=== PATIENT | male | born 1980 | race Caucasian/White ===

== ENCOUNTER 2019-06-13 17:11 | Emergency (ER) | payer OTHER ==
[~2019-06-13] VITALS: Ht 190.5 cm; Wt 136.1 kg
[~2019-06-13 17:11] MED LIST: OSTEOBIFLEX; RELACORE; [UNRECOGNIZED DRUG - OTHER]
== END 2019-06-13 19:45 | disposition home or self-care (01) ==
LOC: ER 17:11
DX: R60.0 Localized edema (principal); Z88.7 Allergy status to serum and vaccine; Z79.899 Other long term (current) drug therapy
CPT/HCPCS: 73630; 93971; 99284-25

== ENCOUNTER 2021-07-25 11:02 | Emergency (ER) | payer OTHER ==
[~2021-07-25] VITALS: Ht 190.5 cm; Wt 142.9 kg
[2021-07-25 12:03] LABS: BASOPHILS ABSOLUTE AUTO 0.06 K/mm3 (0.00-0.23); BASOPHILS PERCENT AUTO 1 % (0-2); EOSINOPHILS ABSOLUTE AUTO 0.14 K/mm3 (0.00-0.68); EOSINOPHILS PERCENT AUTO 2 % (0-6); Hematocrit 46.5 % (37.0-53.0); Hemoglobin 15.9 g/dL (13.5-17.5); IMMATURE GRAN ABSOLUTE AUTO 0.03 K/mm3 (0.00-0.10); IMMATURE GRAN PERCENT AUTO 0 % (0-1); LYMPHOCYTES ABSOLUTE AUTO 2.11 K/mm3 (0.84-5.20); LYMPHOCYTES PERCENT AUTO 27 % (21-46); MONOCYTES ABSOLUTE AUTO 0.71 K/mm3 (0.16-1.47); MONOCYTES PERCENT AUTO 9 % (4-13); Mean Corpuscular HGB 31.5 pg (26.0-34.0); Mean Corpuscular HGB Conc 34.2 g/dL (31.5-36.5); Mean Corpuscular Volume 92 fL (80-100); Mean Platelet Volume 10.2 fL (9.1-12.4); NEUTROPHILS ABSOLUTE AUTO 4.75 K/mm3 (1.96-9.15); NEUTROPHILS PERCENT AUTO 61 % (41-73); Platelet Count 279 K/mm3 (150-400); RDW Coefficient Variation 12.4 % (11.7-14.2); RDW Standard Deviation 41.9 fL (35.1-46.3); Red Blood Cell Count 5.05 M/mm3 (4.30-5.90)
[2021-07-25 12:22] LABS: Alanine Aminotransfer (ALT/SGP 92 U/L (12-78); Albumin, Blood 3.8 g/dL (3.4-5.0); Albumin/Globulin Ratio 0.9 (0.8-1.8); Alk Phos 109 U/L (50-136); Anion Gap 2 mmol/L (6-16); Aspartate Aminotrans (AST/SGOT 47 U/L (12-37); Bilirubin, Total 0.9 mg/dL (0.1-1.0); Blood Urea Nitrogen 11 mg/dL (8-24); Bun/Creatinine Ratio 10.6 (12.0-20.0); CO2, Blood 30 mmol/L (21-32); Calcium, Blood 9.4 mg/dL (8.5-10.1); Chloride, Blood 106 mmol/L (98-108); Creatinine, Blood 1.04 mg/dL (0.60-1.20); Globulin, Blood 4.4 g/dL (2.2-4.0); Glomerular Filtration Rate >60 (60-); Glucose, Blood 111 mg/dL (70-99); Potassium, Blood 4.3 mmol/L (3.5-5.5); Sodium, Blood 138 mmol/L (136-145); Total Protein, Blood 8.2 g/dL (6.4-8.2)
== END 2021-07-25 17:26 | disposition home or self-care (01) ==
LOC: ER 11:02
PROVIDERS: Student in an Organized Health Care Education/Training Program
DX: H53.8 Other visual disturbances (principal)
CPT/HCPCS: 36415; 70450; 80053; 85025; 93005; 93010; 99284-25

== ENCOUNTER 2024-03-19 00:50 | Observation (INO) | payer OTHER ==
[~2024-03-19] VITALS: Ht 188 cm; Wt 129.3 kg
[2024-03-19] MEDS ORDERED: NS 1,000 ML IV SCH ×3 (01:00→02:55)
[2024-03-19 01:06] LABS: BASOPHILS ABSOLUTE AUTO 0.05 K/mm3 (0.00-0.23); BASOPHILS PERCENT AUTO 1 % (0-2); EOSINOPHILS ABSOLUTE AUTO 0.07 K/mm3 (0.00-0.68); EOSINOPHILS PERCENT AUTO 1 % (0-6); Hematocrit 43.7 % (37.0-53.0); Hemoglobin 15.4 g/dL (13.5-17.5); IMMATURE GRAN ABSOLUTE AUTO 0.06 K/mm3 (0.00-0.10); IMMATURE GRAN PERCENT AUTO 1 % (0-1); LYMPHOCYTES ABSOLUTE AUTO 1.56 K/mm3 (0.84-5.20); LYMPHOCYTES PERCENT AUTO 17 % (21-46); MONOCYTES ABSOLUTE AUTO 0.56 K/mm3 (0.16-1.47); MONOCYTES PERCENT AUTO 6 % (4-13); Mean Corpuscular HGB 30.7 pg (26.0-34.0); Mean Corpuscular HGB Conc 35.2 g/dL (31.5-36.5); Mean Corpuscular Volume 87 fL (80-100); NEUTROPHILS ABSOLUTE AUTO 6.74 K/mm3 (1.96-9.15); NEUTROPHILS PERCENT AUTO 74 % (41-73); Platelet Count 239 K/mm3 (150-400); RDW Coefficient Variation 12.5 % (11.7-14.2); Red Blood Cell Count 5.01 M/mm3 (4.30-5.90); White Blood Cell Count 9.04 K/mm3 (4.00-11.30)
[2024-03-19 01:28] LABS: Albumin, Blood 3.5 g/dL (3.4-5.0); Albumin/Globulin Ratio 0.9 (0.8-1.8); Bilirubin, Total 0.7 mg/dL (0.1-1.0); Bun/Creatinine Ratio 18.1 (12.0-20.0); Calcium, Blood 9.2 mg/dL (8.5-10.1); Creatinine, Blood 0.89 mg/dL (0.60-1.20); Globulin, Blood 4.1 g/dL (2.2-4.0); Potassium, Blood 4.2 mmol/L (3.5-5.5); Total Protein, Blood 7.6 g/dL (6.4-8.2)
[2024-03-19 01:46] LABS: Source, Urine Voided
[2024-03-19 01:54] LABS: Bilirubin, Urine Neg (Neg); Blood, Urine 1+ (Neg); Glucose Qualitative, Urine 4+ (Neg); Ketones, Urine Neg (Neg); Leukocyte Esterase, Urine Neg (Neg); Nitrite, Urine Neg (Neg); Protein, Urine 3+ (Neg); Urobilinogen, Urine NORM (Normal)
[2024-03-19 02:10] LABS: Bicarbonate Venous 21.5 mmol/L (24.0-30.0); PCO2 Venous 42.1 mmHg (38-42); pH Blood Venous 7.33 (7.34-7.37)
[2024-03-19 02:11] LABS: Base Excess Venous -3.6 mmol/L
[2024-03-19 02:19] LABS: U Amphetamine Screen Not Detected; U Barbituate Screen Not Detected; U Benzodiazapine Screen Not Detected; U Buprenorphine Screen Not Detected; U Cannabinoids Screen Not Detected; U Cocaine Screen Not Detected; U Methadone Screen Not Detected; U Methamphetamine Screen Not Detected; U Opiates Screen Not Detected; U Oxycodone Screen Not Detected; U Phencyclidine Screen Not Detected
[2024-03-19 02:22] LABS: Beta-hydroxybutyrate 1.9 mg/dL (0.2-2.8)
[2024-03-19 02:26] LABS: Appearance, Urine Clear (Clear); Color, Urine Pale Yellow (P-Yellow)
[2024-03-19 02:27] LABS: Bacteria Few /hpf; Red Blood Cells, Urine 0-2 /hpf (0-2); Squamous Epithelial Cells Few /hpf (Few); White Blood Cells, Urine 0-2 /hpf (0-5)
[2024-03-19] MEDS ORDERED: Insulin Regular 100 Unit/ML 1ML Dose SC ONE (02:30)
[2024-03-19] MEDS ORDERED: Insulin Glargine-Yfgn 100 Unit/mL 3 ML SYR SC SCH (03:00)
[2024-03-19] MEDS ORDERED: Ondansetron HCl 2 MG / ML 2ML Vial IV PRN (03:00)
[2024-03-19 04:23] VITALS: BP 159/99
[2024-03-19 05:09] LABS: BASOPHILS ABSOLUTE AUTO 0.07 K/mm3 (0.00-0.23); BASOPHILS PERCENT AUTO 1 % (0-2); EOSINOPHILS ABSOLUTE AUTO 0.03 K/mm3 (0.00-0.68); EOSINOPHILS PERCENT AUTO 0 % (0-6); Hematocrit 42.3 % (37.0-53.0); Hemoglobin 14.8 g/dL (13.5-17.5); IMMATURE GRAN ABSOLUTE AUTO 0.08 K/mm3 (0.00-0.10); IMMATURE GRAN PERCENT AUTO 1 % (0-1); LYMPHOCYTES ABSOLUTE AUTO 1.75 K/mm3 (0.84-5.20); LYMPHOCYTES PERCENT AUTO 13 % (21-46); MONOCYTES ABSOLUTE AUTO 0.79 K/mm3 (0.16-1.47); MONOCYTES PERCENT AUTO 6 % (4-13); Mean Corpuscular HGB 31.1 pg (26.0-34.0); Mean Corpuscular Volume 89 fL (80-100); Mean Platelet Volume 10.4 fL (9.1-12.4); NEUTROPHILS ABSOLUTE AUTO 10.32 K/mm3 (1.96-9.15); NEUTROPHILS PERCENT AUTO 79 % (41-73); Platelet Count 253 K/mm3 (150-400); RDW Coefficient Variation 12.5 % (11.7-14.2); Red Blood Cell Count 4.76 M/mm3 (4.30-5.90); White Blood Cell Count 13.04 K/mm3 (4.00-11.30)
[2024-03-19 05:36] LABS: Alanine Aminotransfer (ALT/SGP 97 U/L (12-78); Albumin, Blood 3.3 g/dL (3.4-5.0); Albumin/Globulin Ratio 0.9 (0.8-1.8); Alk Phos 185 U/L (50-136); Anion Gap 12 mmol/L (3-11); Aspartate Aminotrans (AST/SGOT 43 U/L (12-37); Bilirubin, Total 0.6 mg/dL (0.1-1.0); Blood Urea Nitrogen 11 mg/dL (8-24); Bun/Creatinine Ratio 13.7 (12.0-20.0); CHOL/HDL RATIO 5.2; CO2, Blood 24 mmol/L (21-32); Calcium, Blood 8.3 mg/dL (8.5-10.1); Chloride, Blood 103 mmol/L (98-108); Cholesterol 217 mg/dL (50-200); Creatinine, Blood 0.81 mg/dL (0.60-1.20); Globulin, Blood 3.7 g/dL (2.2-4.0); Glomerular Filtration Rate 112 (60-); Glucose, Blood 434 mg/dL (70-99); HDL Cholesterol 42 mg/dL (>39); LDL/HDL RATIO Unable to Calculate; Low Density Lipoprotein Chol Unable to Calculate mg/dL (0-110); Potassium, Blood 3.3 mmol/L (3.5-5.5); Sodium, Blood 136 mmol/L (136-145); Triglycerides 546 mg/dL (30-160); Very Low Density Lipoprot Chol Unable to Calculate mg/dL (6-32)
[2024-03-19] MEDS ORDERED: Potassium Chloride 20 MEQ TabCR PO ONE ×2 (06:30→07:45)
--- NOTE | 2024-03-19 06:31 | NUR ---
SHIFT SUMMARY: Pt is admitted for nonketotic hyperglycinemia and is a full code. Is alert and able to make needs known arrived to the floor about 0400 from the ED. ADLs have been SBA. states that he has some low level pain in his neck. Current running NS at 100 x1 bag to the right AC. pankaj reports sinus in the 90s.
[2024-03-19 07:06] VITALS: BP 128/94
[2024-03-19] MEDS ORDERED: Insulin Human Lispro 100 Units/ML 3ML Syringe SC SCH (07:30)
[2024-03-19] MEDS ORDERED: Polyethylene Glycol 3350 17 gm PO PRN (07:45)
[2024-03-19] MEDS ORDERED: Acetaminophen 500 MG Tab PO PRN (07:45)
[2024-03-19] MEDS ORDERED: Enoxaparin 40 MG/0.4 ML SYR SC SCH (09:00)
--- NOTE | 2024-03-19 09:00 | NUR ---
pt laying in bed with eyes closed, wakes easily, a/ox4, a bit slow to process, very cooperative with care, follows commands well, denies pain, lungs are clear t/o, resp even and unlabored, no cough noted, hrr, no edema noted, piv to lfa site is clear and patent, infusing ns as ordered, btx4, abd flat soft nontender, voids without diff, skin c/w/d, with some abrasions secondary to fall at home, call light in reach.
[2024-03-19] MEDS ORDERED: Empagliflozin 10 MG TAB PO ONE (13:00)
[2024-03-19 16:03] VITALS: BP 142/102
[2024-03-19] MEDS ORDERED: MetFORMIN HCl 500 mg PO SCH (17:00)
--- NOTE | 2024-03-19 18:22 | NUR ---
working on teaching pt how to check blood sugar and give insulin injections. did ok, eager to learn, he has had no acute changes this shift.
[2024-03-19 20:22] VITALS: BP 123/91
[2024-03-20 02:59] VITALS: BP 135/92
[2024-03-20 05:34] LABS: Albumin, Blood 3.2 g/dL (3.4-5.0); Anion Gap 13 mmol/L (3-11); Blood Urea Nitrogen 9 mg/dL (8-24); Bun/Creatinine Ratio 11.2 (12.0-20.0); CO2, Blood 27 mmol/L (21-32); Calcium, Blood 8.8 mg/dL (8.5-10.1); Chloride, Blood 105 mmol/L (98-108); Glomerular Filtration Rate 113 (60-); Glucose, Blood 169 mg/dL (70-99); Phosphorus, Blood 3.6 mg/dL (2.5-4.9); Potassium, Blood 3.5 mmol/L (3.5-5.5); Sodium, Blood 141 mmol/L (136-145)
--- NOTE | 2024-03-20 06:02 | NUR ---
SHIFT SUMMARY: Pt is admitted for nonketotic hyperglycinemia and is a full code. Is alert and able to make needs known. ADLs have been SBA. states his pain is better than it was last night and declines anything for pain management. pankaj reports sinus in the 90s
[2024-03-20 07:52] VITALS: BP 137/95
--- NOTE | 2024-03-20 08:59 | NUR ---
pt laying in bed eating breakfast, a/ox4, a bit slow to respond, pleasant and cooperative with care, follows commands well, denies pain, reports a good night, lungs are clear t/o, resp even and unlabored, no cough noted, hrr, no edema noted, ppp+2, cap refill <3 sec, vs stable, afebrile, piv to lfa site is clear and patent, btx4, abd flat soft nontender, voids without diff, skin c/w/d, maew, micki, call light in reach.
--- NOTE | 2024-03-20 12:23 | NUR ---
pt has been giving himself the insulin and did his own finger stick to check glucose, doing well. synthetic cloth binding cutter in to do dietary education. will be discharged this afternoon. call light in reach.
[2024-03-20] MEDS ORDERED: BASAGLAR K100 UNIT/1 SC (12:53)
[2024-03-20] MEDS ORDERED: METF500 PO (12:53)
--- NOTE | 2024-03-20 14:53 | NUR ---
PT DISCHARGED HOME, DISCHARGE INSTRUCTION AND MEDICATION ADMINISTRATION DISCUSSED AT LENGTH WITH PT. TEACH BACK METHOD USED. PT VERBALIZED UNDERSTANDING. PT FRIEND IN ROOM AT TIME OF DISCHARGE. FRIEND ALSO USES INSULIN AND FEELS COMFORTABLE HELPING PT WITH MEDICAITONS.
== END 2024-03-20 14:43 | disposition home health service (06) ==
LOC: ER 00:50 → MEDS 00:51
PROVIDERS: Emergency Medicine; Internal Medicine; ADMIT Internal Medicine
DX: E72.51 Non-ketotic hyperglycinemia (principal); E11.65 Type 2 diabetes mellitus with hyperglycemia; F79 Unspecified intellectual disabilities; E88.810 Metabolic syndrome; G40.909 Epilepsy, unspecified, not intractable, without status epilepticus; Z88.7 Allergy status to serum and vaccine; E86.0 Dehydration
CPT/HCPCS: 36415; 70450; 72125; 80053; 80061; 80069; 81001; 82010; 82550; 82803; 82947; 83036; 83735; 84484; 85025; 93005; 93010; 96360; 96361; 96372; 99285-25; A9270; G0378; J1650; J1815; J7030